=== PATIENT | female | born 1965 | race Caucasian/White ===

== ENCOUNTER 2019-09-03 14:37 | Emergency (ER) | payer MEDICAID ==
[~2019-09-03] VITALS: Ht 160 cm; Wt 53.1 kg
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
[2019-09-03 15:27] LABS: BILIRUBIN,URINE Negative (NEGATIVE); BLOOD, URINE Trace-intact Ery/uL (NEGATIVE); COLOR,URINE Yellow (YELLOW); KETONES,URINE Negative (NEGATIVE); LEUKOCYTE ESTERASE ,URINE Negative (NEGATIVE); NITRITE, URINE Negative (NEGATIVE); PROTEIN,URINE Negative (NEGATIVE); UGLUCOSE Negative (NEGATIVE)
[2019-09-03 15:29] LABS: APPEARANCE,URINE HAZY (CLEAR)
[2019-09-03 15:40] LABS: BACTERIA,URINE Moderate /HPF (None Seen); SQUAMOUS EPITHELIAL CELL,UR Few /HPF (None Seen)
--- NOTE | 2019-09-03 15:40 | NUR ---
wheeled patient via [facility] for ct scan
--- NOTE | 2019-09-03 15:47 | NUR ---
patient came back from ct
[2019-09-03 17:18] VITALS: BP 135/81
--- NOTE | 2019-09-03 17:18 | NUR ---
Patient discharged to home in stable condition. Written and verbal after care instructions given. Patient verbalizes understanding of instruction.
== END 2019-09-03 17:18 | disposition home or self-care (01) ==
LOC: ER 14:46
DX: M54.2 Cervicalgia (principal); R07.89 Other chest pain; M79.642 Pain in left hand
CPT/HCPCS: 71045-TC; 72125-TC; 73130-TC; 81000-TC; 87086-TC; 87186-TC

== ENCOUNTER 2021-02-03 08:47 | Emergency (ER) | payer OTHER ==
[~2021-02-03] VITALS: Ht 162.6 cm; Wt 47.6 kg
--- NOTE | 2021-02-03 08:45 | NUR ---
CALLED TO TRIAGE,NO ANSWER,STEPPED OUT PER ADMITTING
[2021-02-03 09:08] LABS: BILIRUBIN,URINE Negative (NEGATIVE); COLOR,URINE YELLOW (YELLOW); LEUKOCYTE ESTERASE ,URINE Negative (NEGATIVE); NITRITE, URINE Negative (NEGATIVE); PH,URINE 5.5 (5.0-8.0); PROTEIN,URINE 100 mg/dl (NEGATIVE); UGLUCOSE Negative (NEGATIVE); UROBILINOGEN,URINE 0.2 EU/dL (0.2)
--- NOTE | 2021-02-03 09:17 | NUR ---
pt left. not triaged.
[2021-02-03 09:21] LABS: BACTERIA,URINE 1+ /HPF (None Seen); CALCIUM OXALATE CRYSTALS,UR Many /HPF (None Seen); RBC,URINE TOO NUMEROUS TO COUN /HPF (0-2); SQUAMOUS EPITHELIAL CELL,UR Few /HPF (None Seen); WBC,URINE NONE SEEN /HPF (0-3)
[2021-02-03 09:35] VITALS: BP 129/90
[2021-02-03] MEDS ORDERED: PHEN-704 PO (09:42)
--- NOTE | 2021-02-03 09:55 | NUR ---
Patient discharged to home in stable condition. Written and verbal after care instructions given. Patient verbalizes understanding of instruction.
== END 2021-02-03 09:55 | disposition home or self-care (01) ==
LOC: ER 08:47
DX: R31.9 Hematuria, unspecified (principal); R30.0 Dysuria
CPT/HCPCS: 81001

== ENCOUNTER 2022-09-03 04:54 | Emergency (ER) | payer OTHER ==
[~2022-09-03 04:54] MED LIST: PHEN-704 PO
--- NOTE | 2022-09-03 05:45 | NUR ---
CALLED TO TRIAGE, NO RESPONSE
--- NOTE | 2022-09-03 05:49 | NUR ---
called to triage, not in waiting room
--- NOTE | 2022-09-03 06:05 | NUR ---
CALLED TO TRIAGE NO RESPONSE
== END 2022-09-03 06:06 | disposition left against medical advice (07) ==
LOC: ER 04:55
DX: Z53.21 Procedure and treatment not carried out due to patient leaving prior to being seen by health care provider (principal)

== ENCOUNTER 2023-04-19 05:35 | Emergency (ER) | payer OTHER ==
[~2023-04-19] VITALS: Ht 162.6 cm; Wt 50.3 kg
[2023-04-19 07:05] VITALS: BP 138/80; TEMP 98.8; O2SAT 100
== END 2023-04-19 07:05 | disposition left against medical advice (07) ==
LOC: ER 05:38
DX: M54.2 Cervicalgia (principal); Z53.21 Procedure and treatment not carried out due to patient leaving prior to being seen by health care provider

== ENCOUNTER 2024-12-31 09:02 | Emergency (ER) | payer MEDICAID, OTHER ==
[~2024-12-31] VITALS: Ht 157.5 cm; Wt 49.4 kg
[2024-12-31 09:40] LABS: PLATELET COUNT (AUTO) 252 K/uL (150-450); RED BLOOD CELL COUNT(AUTO) 3.36 MIL/uL (4.0-5.2); RED CELL DISTRIBUTION WIDTH 12.2 % (11.5-15.0); WHITE BLOOD COUNT (AUTO) 4.0 K/uL (4.3-11.0)
[2024-12-31 09:52] LABS: CALCIUM, SERUM 8.8 mg/dL (8.5-10.1); CREATININE 0.7 mg/dL (0.6-1.3); SODIUM SERUM 141.0 mmol/L (136-145); UREA NITROGEN, BLOOD 20.0 mg/dL (7-18)
[2024-12-31 10:28] LABS: APPEARANCE,URINE CLEAR (CLEAR); BLOOD, URINE 2+ Ery/uL (NEGATIVE); LEUKOCYTE ESTERASE ,URINE TRACE (NEGATIVE); NITRITE, URINE NEGATIVE (NEGATIVE); UGLUCOSE NEGATIVE (NEGATIVE)
[2024-12-31 10:36] LABS: ADD URINE CULTURE YES; PREGNANCY TEST URINE QUAL NEGATIVE (NEGATIVE); SQUAMOUS EPITHELIAL CELL,UR Few /HPF (None Seen)
[2024-12-31] MEDS ORDERED: CEPH500T PO (10:55)
[2024-12-31 11:01] VITALS: BP 98/62; TEMP 98.3; O2SAT 98
== END 2024-12-31 11:02 | disposition home or self-care (01) ==
LOC: ER 09:04
DX: R31.9 Hematuria, unspecified (principal); R30.0 Dysuria; R10.24 Suprapubic pain; E78.5 Hyperlipidemia, unspecified; Z87.440 Personal history of urinary (tract) infections; Z88.2 Allergy status to sulfonamides; Z59.00 Homelessness unspecified
CPT/HCPCS: 36415; 80048-TC; 81001; 84703-TC; 85025-TC; 87086-TC